=== PATIENT | male | born 1995 | race Caucasian/White ===

== ENCOUNTER 2023-11-24 22:48 | Emergency (ER) | payer MEDICAID ==
[~2023-11-24] VITALS: Ht 170.2 cm; Wt 67.0 kg
[2023-11-24 23:07] VITALS: O2SAT 98
[2023-11-25] MEDS: KETOROLAC 15MG/ML VIAL IM ONE
[2023-11-25 01:19] LABS: CHLORIDE 108 mEq/L (98-107); POTASSIUM 3.4 mEq/L (3.5-5.1); SODIUM 141 mEq/L (136-145)
[2023-11-25 01:20] LABS: CARBON DIOXIDE 25 mEq/L (21-32)
[2023-11-25 01:21] LABS: CALCIUM 8.7 mg/dL (8.7-10.4)
[2023-11-25 01:25] LABS: CREATININE 0.8 mg/dL (0.6-1.3); GLUCOSE 110 mg/dL (70-105)
[2023-11-25 01:26] LABS: UREA NITROGEN BLOOD 10 mg/dL (9-23)
[2023-11-25 01:58] LABS: BASOPHILS % 0.4 % (0.0-2.0); EOSINOPHILS % 0.7 % (0.0-5.0); HEMATOCRIT. 41.4 % (42.0-52.0); LYMPHOCYTES % 19.6 % (20.0-50.0); MEAN CORPUSCULAR HEMOGLOBIN 30.3 pg (28.0-32.0); MEAN CORPUSCULAR HGB CONC 33.9 g/dL (31.0-37.0); MEAN CORPUSCULAR VOLUME 89.5 fL (80.0-94.0); MEAN PLATELET VOLUME 9.3 fl (7.4-10.4); MONOCYTES % 6.1 % (2.0-8.0); NEUTROPHILS % 73.2 % (40.0-76.0); PLATELET 199 x1000/uL (130-400); RED BLOOD CELL COUNT 4.62 mill/uL (4.7-6.1); RED CELL DISTRIBUTION WIDTH 13.6 % (11.6-14.6); WHITE BLOOD COUNT 6.6 x1000/uL (4.5-11.0)
[2023-11-25 02:03] LABS: PROTHROMBIN TIME 11.3 sec (9.6-11.0)
[2023-11-25] MEDS: IOHEXOL-300 100 ML BOTTLE ONE (04:21)
[2023-11-25 04:35] VITALS: BP 101/59; PULSE 71; RESP 14; TEMP 36.78072; O2SAT 98
== END 2023-11-25 05:00 | disposition short-term general hospital (02) ==
LOC: ER 22:48
DX: S01.511A Laceration without foreign body of lip, initial encounter (principal); S09.90XA Unspecified injury of head, initial encounter; E11.9 Type 2 diabetes mellitus without complications; M25.521 Pain in right elbow; R10.12 Left upper quadrant pain; R10.31 Right lower quadrant pain; R10.32 Left lower quadrant pain; R10.11 Right upper quadrant pain; V49.49XA Driver injured in collision with other motor vehicles in traffic accident, initial encounter; Y93.89 Activity, other specified; Y92.89 Other specified places as the place of occurrence of the external cause; Y99.8 Other external cause status
CPT/HCPCS: 99285; 73502; 73080; 70450; 80048; 85025; 85610; 86850; 86900; 86901; 36415; 71260; 72125; 74177; 96372; J1885; Q9967